=== PATIENT | male | born 1970 | race African-American/Black ===

== ENCOUNTER 2020-09-16 16:39 | Inpatient (IN) | payer BC ==
[2020-09-16] VITALS (7 sets, daily range): BP systolic 111–141; BP diastolic 62–83
[~2020-09-16] VITALS: Ht 180.3 cm; Wt 178.2 kg
--- NOTE | ~2020-09-16 | O ---
[facility] [place] [address] OPERATIVE REPORT Name: KARLOS HOUSE Room #: 237-P ADM IN M.R.#: [id number] Admission: 09/16/20 Attend Phys: Edgar Buckley MD Discharge: Date of : 66 Report #: [id number] THIS REPORT FOR: cc: FAM - Family physician unknown FAM - Family physician unknown Kishor Coy MD ~ DATE OF SERVICE: 10/04/2020 PREOPERATIVE DIAGNOSIS: Right pleural effusion. POSTOPERATIVE DIAGNOSIS: Right pleural effusion. OPERATION: Right chest tube placement. SURGEON: Kishor Coy MD ANESTHESIA: Local. INDICATIONS: The patient is a 49-year-old, on the ventilator with COVID pneumonia. The patient has a right pleural effusion. Thoracentesis was done of 1250 mL of fluid, but there is residual lateral fluid present and Dr. Cavazos has asked us to place a chest tube for what appears to be Staph empyema. FINDINGS AND TECHNIQUE: After the patient was positioned and prepped and draped, 1% lidocaine was used, and incision was made in the anterolateral right chest. This was deepened until the chest was entered. Digital exploration was attempted, but the patient was quite thick. Chest tube was placed through the aperture and secured in position. Approximately 500 mL of serous fluid was obtained initially. Chest x-ray was obtained. The patient appeared to tolerate the procedure well despite his underlying problem. By: [id number] Kishor Coy MD /esperanza
--- NOTE | ~2020-09-16 | HC ---
[facility] [place] [address] CONSULTATION Name: KARLOS HOUSE Room #: 237-P ADM IN M.R.#: [id number] Admission: 09/16/20 Attend Phys: Edgar Buckley MD Discharge: Date of : 66 Report #: [id number] THIS REPORT FOR: cc: FAM - Family physician unknown FAM - Family physician unknown Kishor Coy MD ~ DATE OF SERVICE: 10/04/2020 We were asked by Dr. Cavazos to see the patient. HISTORY OF PRESENT ILLNESS: The patient is a 49-year-old admitted 09/16/2020 with pulmonary dysfunction related to COVID and respiratory failure. The patient required intubation and ventilation on 09/19/2020. Since that time, the patient has been treated for COVID-19 pneumonia with SARS and respiratory failure. It appears that yesterday a thoracentesis was done for new pleural effusion. 1250 mL of fluid was obtained. This was positive for Staph aureus. The patient also has had positive blood cultures recently for staph. There was residual pleural fluid and Dr. Cavazos has requested a chest tube to drain this. PAST MEDICAL HISTORY: Significant for asthma, obesity, hypertension and gastroesophageal reflux. It should be mentioned that the historical data is gleaned from the chart as the patient is intubated. MEDICATIONS: At home included Protonix, albuterol, metoclopramide, Bevespi Aerosphere inhaler, amlodipine, cefdinir, and prednisone. ALLERGIES: None reported. SOCIAL HISTORY: Tobacco, alcohol and recreational drug use, recorded as unknown. REVIEW OF SYSTEMS: I have no reason to disagree with the review of systems as documented in the chart. PHYSICAL EXAMINATION: GENERAL: The patient is currently on the ventilator. VITAL SIGNS: Temperature 38.1, heart rate 77, blood pressure 156/86, O2 sat varies from 87-91 on 100%. HEENT: No scleral icterus, no arcus. NECK: No mass, no bruit. CHEST: Decreased breath sounds, right side. [facility] [address] [place] [address] CONSULTATION Name: KARLOS HOUSE Sola Room #: 237-[facility] IN .R.#: [id number] Admission: 09/16/20 Attend Phys: Edgar Buckley MD Discharge: Date of : 66 Report #: [id number] HEART: Rhythm regular, heart tones are distant. ABDOMEN: Soft with centripetal obesity. EXTREMITIES: Trace edema. No clubbing, cyanosis. IMAGING DATA: Chest x-ray shows right pleural effusion. Details of chest tube placement will be dictated separately. ASSESSMENT: Pleural fluid positive for staph. Chest tube will be placed in the hopes that this is serous phase of the empyema. If intervened early enough, should not require open intervention. We will follow along with you for progress, recovering from the COVID pneumonia and respiratory failure and pulmonary dysfunction. Thank you for the consult. By: [id number] Kishor Coy MD /esperanza
[2020-09-16] MEDS ORDERED: PROTONIX40 M2 PO (16:54)
[2020-09-16] MEDS ORDERED: ALBUTEROL2.5 MG/3 M INH (16:55)
[2020-09-16] MEDS ORDERED: METOCLOPRAMIDE10 MG PO (16:55)
[2020-09-16] MEDS ORDERED: AMLODIPINE BESY10 MG PO (16:56)
[2020-09-16] MEDS ORDERED: BREZTRI AEROS10.7 GM INH (16:56)
[2020-09-16] MEDS ORDERED: PREDNISONE 5 MG5 M1 PO (16:57)
[2020-09-16] MEDS ORDERED: CEFDINIR300 MG PO (16:57)
[2020-09-16 17:03] LABS: ABSOLUTE NEUTROPHILS 10.4 thou/uL (1.4-8.2); BASOPHILS 0.3 % (0.0-2.0); HEMATOCRIT 45.1 % (42.0-52.0); HEMOGLOBIN 14.3 gm/dL (14.0-18.0); LYMPHOCYTES 5.7 % (24.0-44.0); MCH 22.4 pg (26.0-34.0); MCHC 31.8 g/dL (28.0-37.0); MCV 70.5 fL (80.0-100.0); MONOCYTES 5.7 % (1.0-8.0); PLATELET COUNT 329 thou/uL (150-400); POLYS 88.3 % (36.0-66.0); RBC 6.39 mil/uL (4.50-6.00); RDW 16.5 % (10.5-14.5); WBC 11.8 thou/uL (4.0-11.0)
[2020-09-16 17:14] LABS: ANION GAP 8 mmol/L (7-16); BUN 22 mg/dL (7-18); CALCIUM 8.3 mg/dL (8.5-10.1); CHLORIDE 100 mmol/L (98-107); CO2 28 mmol/L (21-32); CREATININE 1.6 mg/dL (0.7-1.3); GLUCOSE 148 mg/dL (74-106); POTASSIUM 4.3 mmol/L (3.5-5.1); SODIUM 136 mmol/L (136-145)
[2020-09-16 17:35] LABS: ALBUMIN 2.6 g/dL (3.4-5.0); DIRECT BILIRUBIN 0.1 mg/dL (<0.1-0.2); MAGNESIUM 2.6 mg/dL (1.8-2.4); PHOSPHORUS 3.4 mg/dL (2.5-4.9); SGOT 58 U/L (15-37); SGPT 62 U/L (30-65); TOTAL BILIRUBIN 0.5 mg/dL (0.2-1.0); TOTAL PROTEIN 7.4 g/dL (6.4-8.2); TROPONIN-I <0.06 ng/mL (<0.06)
[2020-09-16 17:58] LABS: HYPOCHROMASIA 3+
[2020-09-16 17:59] LABS: ANISOCYTOSIS 1+; MICROCYTES 3+
[2020-09-16 18:40] LABS: HCO3 22.4 mmol/L (22.0-26.0); PO2 71.2 mmHg (80.0-100.0); pH 7.437 (7.360-7.450)
--- NOTE | 2020-09-16 19:00 | NUR ---
PT [phone]
[2020-09-16 19:34] LABS: FERRITIN 272 ng/mL (26-388)
[2020-09-16 20:21] LABS: URINE BILIRUBIN NEGATIVE (Negative); URINE BLOOD TRACE (Negative); URINE CLARITY CLEAR; URINE COLOR YELLOW; URINE GLUCOSE-RANDOM* NEGATIVE (Negative); URINE KETONES NEGATIVE (Negative); URINE LEUKOCYTES-REFLEX NEGATIVE (Negative); URINE NITRITE-REFLEX NEGATIVE (Negative); URINE PROTEIN (DIPSTICK) TRACE (Negative)
[2020-09-16] MEDS ORDERED: TESSALON PERLE100 M1 PO (21:57)
[2020-09-16] MEDS ORDERED: SYMBICORT160 MCG/4. INH (21:59)
[2020-09-16] MEDS ORDERED: XHANCE16 ML INH (22:00)
--- NOTE | 2020-09-16 22:50 | NUR ---
PT ADMITTED TO UNIT AT 2139, PLACED ON TELE, ARRIVED ON BIPAP SETTINGS 16/8, RR 16, AND 100% FIO2; PT ABLE TO MOVE HIMSELF OVER TO BED VERY SLOWLY. SATTING ABOUT 90% W/ RR MID-TO HIGH 30'S. ADMISSION AND ASSESSMENT COMPLETED. ON IVF, FIRST DOSE REMDSIVIR INFUSING. PT A&Ox4, COOPERATIVE W/CARES. 2229-SPOKE WITH DR. HAND REGARDING NEW ADMIT. ORDERED ONE TIME DOSE OF LASIX, AM LABS, ELECTROLYTE PROTOCOL, AM CXR, AND START ON IVERMECTIN. DR. HAND ASKED TO BE CALLED BACK IF PT COULD NOT MAINTAIN SATS, OR HAD A SUSTAINED RR UPPER 30'S OR 40'S, OR SEEMED TO BE EXHAUSTING HIS RESP DRIVE. 2254-SPOKE WITH DR. GERONIMO REGARDING NEW CONSULT AND CURRENT ORDERS, ADDED CONVALESCENT PLASMA ORDERS.
[2020-09-17] VITALS (85 sets, daily range): BP systolic 86–168; BP diastolic 36–92
[2020-09-17 01:59] LABS: HEMATOCRIT 43.1 % (42.0-52.0); HEMOGLOBIN 13.7 gm/dL (14.0-18.0); MCH 22.3 pg (26.0-34.0); MCHC 31.8 g/dL (28.0-37.0); MCV 70.3 fL (80.0-100.0); RBC 6.12 mil/uL (4.50-6.00); RDW 16.7 % (10.5-14.5); WBC 10.5 thou/uL (4.0-11.0)
[2020-09-17 02:01] LABS: CALCIUM 7.9 mg/dL (8.5-10.1); CREATININE 1.5 mg/dL (0.7-1.3); POTASSIUM 4.4 mmol/L (3.5-5.1)
--- NOTE | 2020-09-17 21:40 | NUR ---
1957-PT REPORTED MILD ANXIETY, SPOKE W/JOCKEY VALET BRISEIDA AND OBTAINED ONE TIME ORDER FOR 4MG MORPHINE FOR AIR HUNGER/ANXIETY, GIVEN AT 2018. THIS DID CAUSE A SLIGHT DROP IN O2 SATS TO 88%, BUT BP AND HR ARE STABLE AND RR IS AROUND 27. 2139-SPOKE W/ PT'S HARRIETT AND GAVE UPDATE. NO CONCERNS NOTED, SHE SAYS SHE WILL TRY TO TALK TO HIM IN THE MORNING.
[2020-09-18] VITALS (45 sets, daily range): BP systolic 111–156; BP diastolic 54–97
[2020-09-18 01:05] LABS: GLYCOHEMOGLOBIN (HGB A1C) 7.8 % (4.8-5.6)
[2020-09-18 10:29] LABS: CREATININE 1.3 mg/dL (0.7-1.3); DIRECT BILIRUBIN 0.1 mg/dL (<0.1-0.2); POTASSIUM 4.7 mmol/L (3.5-5.1); TOTAL BILIRUBIN 0.3 mg/dL (0.2-1.0)
[2020-09-18 10:30] LABS: ALBUMIN 2.1 g/dL (3.4-5.0); PHOSPHORUS 3.5 mg/dL (2.6-4.7); TOTAL PROTEIN 6.3 g/dL (6.4-8.2)
[2020-09-18 10:57] LABS: HEMATOCRIT 42.1 % (42.0-52.0); MCH 22.5 pg (26.0-34.0); MCV 72.7 fL (80.0-100.0); PLATELET COUNT 347 thou/uL (150-400); RBC 5.79 mil/uL (4.50-6.00); RDW 17.1 % (10.5-14.5); WBC 12.9 thou/uL (4.0-11.0)
[2020-09-18 11:32] LABS: ABSOLUTE NEUTROPHILS 10.8 thou/uL (1.4-8.2); ANISOCYTOSIS 1+; MICROCYTES 2+; PLATELET ESTIMATE NORMAL
--- NOTE | 2020-09-18 13:33 | HC ---
[facility] [place] [address] CONSULTATION Name: KARLOS HOUSE Room #: 237-P ADM IN M.R.#: [id number] Admission: 09/16/20 Attend Phys: Edgar Buckley MD Discharge: Date of : 66 Report #: [id number] THIS REPORT FOR: cc: FAM - Family physician unknown FAM - Family physician unknown Mikey Marcial MD ~ DATE OF SERVICE: 09/17/2020 INFECTIOUS DISEASE CONSULTATION REASON FOR CONSULTATION: I was asked to evaluate concerning COVID-19 pneumonia. HISTORY OF PRESENT ILLNESS: The patient is a 49-year-old underlying history of asthma, hypertension, obesity, who presents with a 3-day history of cough, congestion and progressive dyspnea. He was tested positive 3 days prior to his admission. Given oral antibiotic and low dose prednisone without improvement. He presented in respiratory failure, now on BiPAP. He has had intermittent cough productive of light-colored sputum without hemoptysis or chest pain. No cardiovascular history other than hypertension. He does have a history of gastroesophageal reflux, which has been stable. He has had no travel. His family members have otherwise been healthy by his report. He has had no headaches, loss of taste or smell, nausea, vomiting or diarrhea. No rashes or arthritis. A 14-point review of system was negative other than what has been described above. ALLERGIES: None. MEDICATIONS: As noted on his MAR, having been started on corticosteroids, remdesivir and ivermectin. He is on azithromycin and ceftriaxone as well. PAST MEDICAL HISTORY: Asthma, gastroesophageal reflux, hypertension. FAMILY HISTORY: Negative for diabetes or pulmonary disease. SOCIAL HISTORY: Nonsmoker, no significant alcohol intake. PHYSICAL EXAMINATION: VITAL SIGNS: He is afebrile and hemodynamically stable. GENERAL: He is alert and cooperative, on BiPAP. He was obese. SKIN: Without rash or decubitus. No palpable adenopathy. HEENT: Eyes without scleral icterus. NECK: Supple. LUNGS: Coarse breath sounds posteriorly. [address] [address] CONSULTATION Name: KARLOS HOUSE Room #: 237-P [facility] IN ..#: [id number] Admission: 09/16/20 Attend Phys: Edgar Buckley MD Discharge: Date of : 66 Report #: [id number] HEART: Regular, without murmur, gallop or rub. ABDOMEN: Soft and nontender with no hepatosplenomegaly or mass. GENITORECTAL: Not performed. BACK: Nontender to percussion. EXTREMITIES: Without clubbing, cyanosis or edema. NEUROLOGIC: Cranial nerves intact. Strength in the upper and lower extremities along with sensation to touch symmetric and within normal limits. Mood without anxiety or depression. Mental status was normal. LABORATORY STUDIES: Reviewed. MICROBIOLOGY: Reviewed. Chest x-ray reviewed. IMPRESSION: 1. A 49-year-old with COVID-19 pneumonia and systemic inflammatory response syndrome and respiratory failure. 2. Asthma. 3. Obesity. 4. Hypertension. 5. Gastroesophageal reflux. RECOMMENDATIONS: We will continue full ICU support for COVID-19 infection including isolation procedures, combination antiviral therapy along with empiric antibiotics. He will be on corticosteroids. We will check serial laboratory studies and chest x-ray. He has received convalescent plasma. I have discussed with nursing staff regarding overall plan of care. <ELECTRONICALLY SIGNED> By: Mikey Marcial MD 09/18/20 1333 [id number] Mikey Marcial MD /nt
--- NOTE | 2020-09-18 14:11 | NUR ---
CONSULTED TO PLACE A CENTRAL LINE FOR TPN. ORDER AND CONSENT NOTED. THE PROCEDURE WELL BENIFITS AND RISKS DISCUSSED WITH THE PATIENT AND HE VERBALIZED UNDERSTANDING. THE RIGHT IJ WAS WIDLEY PATENT. A #6F TRIPLE LUMEN CENTRAL LINE WAS PLACED PER POLICY AFTER A BEDSIDE TIMEOUT WAS COMPLETED. THE 25CM LINE WAS ADVANCED TO 7CM EXTERNAL. A STAT CHEST XRAY WAS ORDERED FOR CONFIRMATION
--- NOTE | 2020-09-18 14:45 | NUR ---
on right side with shallow breathing with rr-38 when resting, then when awake rr-48. encouraged and provided support to assist pt in taking intermittent take deep breaths at short intervals and coughs when able to tolerate. with breathing improved to 38 when awake, pt able to position on his back. he continued to take deep breaths and cough, he was tired in general from the covid and tired from coughing. denies needing to be intubated at this time. allowed pt to rest. pt agreeable to prone. with rn assist, pt able to obtain prone positioning. well tolerated. bipap remains on. pt stated after positioning, "this feels so much better" referring to his posterior lungs. [employer] in his line of sight and pt dozing with resp rate eventually down to 28.
[2020-09-19] VITALS (46 sets, daily range): BP systolic 105–157; BP diastolic 61–99
[2020-09-19 04:26] LABS: HEMATOCRIT 40.9 % (42.0-52.0); HEMOGLOBIN 12.9 gm/dL (14.0-18.0); MCH 22.5 pg (26.0-34.0); MCHC 31.6 g/dL (28.0-37.0); MCV 71.3 fL (80.0-100.0); RBC 5.73 mil/uL (4.50-6.00); RDW 16.7 % (10.5-14.5); WBC 18.1 thou/uL (4.0-11.0)
[2020-09-19 04:44] LABS: CHOLESTEROL 205 mg/dL (<200); HDL CHOLESTEROL 34 mg/dL (>40); LDL CHOLESTEROL 138 mg/dL (<100); TRIGLYCERIDE 165 mg/dL (<150); VLDL 33 mg/dL (<40)
[2020-09-19 04:46] LABS: CALCIUM 8.1 mg/dL (8.5-10.1); CREATININE 1.3 mg/dL (0.7-1.3); DIRECT BILIRUBIN 0.1 mg/dL (<0.1-0.2); PHOSPHORUS 3.1 mg/dL (2.5-4.9); POTASSIUM 4.6 mmol/L (3.5-5.1); TOTAL BILIRUBIN 0.4 mg/dL (0.2-1.0); TOTAL PROTEIN 5.9 g/dL (6.4-8.2)
[2020-09-19 04:50] LABS: SERUM ASSESSMENT Clear
--- NOTE | 2020-09-19 07:22 | EKG ---
[address] [address] ELECTROCARDIOGRAM REPORT Name: KARLOS HOUSE Room #: 237-P ADM IN M.R.#: [id number] Admission: 09/16/20 Attend Phys: Edgar Buckley MD Discharge: Date of : 66 Report #: [id number] [facility] ED Test Date: 2020-09-16 Test Time: 18:19:16 Pat Name: KARLOS HOUSE Department: Room: [facility] Gender: M Audio Visual Facilities Engineer: : 1970 Requested By: Jaspreet Yan Order Number: [id number] MD: Lincoln Christian Measurements Intervals [place] Rate: 115 P: 60 [place]: 129 QRS: 3 QRSD: 76 T: 3 QT: 305 QTc: 422 Interpretive Statements Sinus tachycardia Cannot rule out inferior infarct, age indeterminate No previous ECG available for comparison Electronically Signed On 09-19-2020 7:22:43 FAMILY LIVING EDUCATOR by Lincoln Christian [email or web address] <ELECTRONICALLY SIGNED> By: Lincoln Christian MD, [facility] 09/19/20 0722 1819 1819 Lincoln Christian MD, FACC /EPI
--- NOTE | 2020-09-19 10:08 | NUR ---
49 year old male presenting to the ED via EMS with complaints of increasing SOB that began the day prior to ED presentation and became worse. Pt reports he recently tested positive for COVID-19 3 days ago and states he feels as if he cannot catch his breath. EMS reports pt.'s O2 saturations have remained in the 70's-80's on 15L Non-Rebreather Mask. Patient has been admitted for COVID 19 pneumonia with SARS and respiratory failure, Asthma, Obesity, HRN and Gastroesophageal reflux. Patient has been admitted to full ICU support with COVID-19 isolation and combination antiviral therapy. Pending cultures and empiric antibiotic therapy along with anticoagulation, Acute respiratory failure and sepsis. Remains on Bipap with FI 02 at 75. The patients spouse is Kavya [phone] who states that the patient does have BCBS with [employer] and did send a copy of this card to CM which in turn the notified admitting and registration. Introduced and explained the role of CM and learned that the patient has not used rehab, SNF, Home Health or DME services in the past. Explained as treatment progresses and per physician order therapies will be in to access discharge needs. Also explained that CM will follow for discharge needs.
--- NOTE | 2020-09-19 12:00 | NUR ---
pt agreed with being intubated after speaking with Dr. Swanson. pt face timed his and rn called to speak with his to update her on pt status. precedex infusing, pt bagged with 100% o2 per rt. etomidate iv and rocuronium 10mg iv given. propofol infusing. Dr. Swanson placed a 8.0 ett, 26 at teeth. OG placed at 76 cm, positive air bolus present.
--- NOTE | 2020-09-19 12:31 | NUR ---
portable chest xray completed.
[2020-09-19 12:50] LABS: BE(vivo) -4.9 mmol/L (-2 to +3); HCO3 21.7 mmol/L (22.0-26.0); PCO2 45.9 mmHg (35.0-45.0); PO2 133.1 mmHg (80.0-100.0); pH 7.293 (7.360-7.450); sO2 98.4 % (92.0-98.0)
--- NOTE | 2020-09-19 14:18 | NUR ---
unable to visit with gilmer rt conserve on ppe rt covid + and use of bipap. will cont following as needed for dc needs.
--- NOTE | 2020-09-19 18:45 | NUR ---
rn notified his that he was intubated and updated on his status with having sedation and tolerating vent. provided support and all questions answered to satisfaction. sedation decreased related SB-45. then pt's breathing becomes labored, has spontaneous movement of all extremities in attempt to remove ett and aggressively repositioning self in bed despite kirill wrist restraints. bucking vent, suctioning secretions per ett, sedation increased.
--- NOTE | 2020-09-19 19:30 | NUR ---
call placed to Dr. Swanson. updated on pt status with sao2 89-91% with fio2 previously increased. now sao2 low again. SB-45 related to sedation. received orders for sedation, tube feeding/water boluses and maint iv fluids dc'd. [facility] bed ordered, proning to start when [facility] bed available.
[2020-09-20] VITALS (39 sets, daily range): BP systolic 93–121; BP diastolic 52–69
[2020-09-20 04:26] LABS: BE(vivo) -5.3 mmol/L (-2 to +3); HCO3 20.2 mmol/L (22.0-26.0); PCO2 39.5 mmHg (35.0-45.0); PO2 64.2 mmHg (80.0-100.0); sO2 91.1 % (92.0-98.0)
[2020-09-20 04:27] LABS: pH 7.327 (7.360-7.450)
[2020-09-20 05:42] LABS: HEMATOCRIT 45.4 % (42.0-52.0); HEMOGLOBIN 14.3 gm/dL (14.0-18.0); MCH 22.8 pg (26.0-34.0); MCHC 31.5 g/dL (28.0-37.0); MCV 72.2 fL (80.0-100.0); RBC 6.29 mil/uL (4.50-6.00); RDW 16.9 % (10.5-14.5); WBC 23.1 thou/uL (4.0-11.0)
[2020-09-20 06:09] LABS: PLATELET COUNT 234 thou/uL (150-400)
[2020-09-20 06:16] LABS: CALCIUM 8.3 mg/dL (8.5-10.1); CREATININE 1.2 mg/dL (0.7-1.3); DIRECT BILIRUBIN 0.2 mg/dL (<0.1-0.2); PHOSPHORUS 3.5 mg/dL (2.5-4.9); POTASSIUM 4.9 mmol/L (3.5-5.1); TOTAL BILIRUBIN 0.4 mg/dL (0.2-1.0); TOTAL PROTEIN 6.1 g/dL (6.4-8.2)
[2020-09-20 13:10] LABS: ABSOLUTE NEUTROPHILS 22.4 thou/uL (1.4-8.2); ANISOCYTOSIS 1+
[2020-09-20 13:12] LABS: MICROCYTES 1+
--- NOTE | 2020-09-20 15:36 | NUR ---
[facility] error which is not allowing for documentation of insulin administration. 10 units of insulin given at 1310. ticket out to IT to resolve this issue in the emar.
--- NOTE | 2020-09-20 15:43 | NUR ---
SPOKE WITH DOCTOR GOTTLIEB ABOUT PRONING PATIENT. WILL ATTEMPT TO PRONE WHEN BARRIATIC BED ARRIVES.
--- NOTE | 2020-09-20 18:01 | NUR ---
ASSUMED CARE AT 1600. [facility] NOT FUNCTIONING CORRECTLY SPECIFICALLY THE INSULIN LISPRO CHARTING FUNCTION. FOR THE 1730 DOSE OF INSULIN, 20 UNITS WERE GIVEN FOR THE PATIENT'S BLOOD SUGAR OF 317 AT 1755. PATIENT NOT PROGRESSING TOWARDS THE PLAN OF CARE EVIDENCED BY CONTINUED HIGH OXYGEN DEMANDS.
--- NOTE | 2020-09-20 21:19 | NUR ---
This RN spoke to Kavya, at 2100 for about 10 minutes updating on patient status. All questions answered, and updated on care plan.
[2020-09-21] VITALS (24 sets, daily range): BP systolic 111–152; BP diastolic 63–86
--- NOTE | 2020-09-21 00:37 | NUR ---
This RN proned patient at 2230. Tolerated very well. O2 sats in upper 90's. Will continue to monitor.
[2020-09-21 05:32] LABS: ALBUMIN 2.4 g/dL (3.4-5.0); CALCIUM 8.1 mg/dL (8.5-10.1); CREATININE 1.7 mg/dL (0.7-1.3); DIRECT BILIRUBIN 0.3 mg/dL (<0.1-0.2); PHOSPHORUS 4.6 mg/dL (2.5-4.9); POTASSIUM 4.7 mmol/L (3.5-5.1); TOTAL BILIRUBIN 0.5 mg/dL (0.2-1.0); TOTAL PROTEIN 6.5 g/dL (6.4-8.2)
--- NOTE | 2020-09-21 09:41 | NUR ---
ASSUMED CARE AT 0700. PATIENT'S , HARRIETT, CALLED AND SHE WAS SPOKEN TO FROM [phone] AND SHE WAS UPDATED AND EDUCATED ON THE PATIENT'S CONDITION AND PLAN OF CARE. HARRIETT REQUESTED A CALL FROM THE SPORTS BOOKMAKER.
--- NOTE | 2020-09-21 21:22 | NUR ---
This RN called Dr Swanson to discuss multiple liquid bowel movements. That started last night. Happens after tube feedings. Orders to place a fecal management system.
[2020-09-22] VITALS (23 sets, daily range): BP systolic 105–146; BP diastolic 64–88
--- NOTE | 2020-09-22 01:16 | NUR ---
Patient proned at 0100. Tolerating very well. Will continue to monitor.
[2020-09-22 05:26] LABS: MAGNESIUM 3.6 mg/dL (1.8-2.4); PHOSPHORUS 3.2 mg/dL (2.5-4.9)
[2020-09-22 05:39] LABS: ALBUMIN 2.2 g/dL (3.4-5.0); CALCIUM 7.8 mg/dL (8.5-10.1); CREATININE 1.5 mg/dL (0.7-1.3); DIRECT BILIRUBIN 0.2 mg/dL (<0.1-0.2); PHOSPHORUS 3.3 mg/dL (2.5-4.9); POTASSIUM 5.5 mmol/L (3.5-5.1); TOTAL BILIRUBIN 0.4 mg/dL (0.2-1.0); TOTAL PROTEIN 5.4 g/dL (6.4-8.2)
--- NOTE | 2020-09-22 10:23 | NUR ---
Assumed care at 0700, assessment and vital signs completed per ICU protocol. Pt's , Kavya, called RN for an update, security code provided. RN will continue to monitor.
[2020-09-23] VITALS (72 sets, daily range): BP systolic 119–169; BP diastolic 76–110
[2020-09-23 06:10] LABS: HEMATOCRIT 44.1 % (42.0-52.0); HEMOGLOBIN 13.8 gm/dL (14.0-18.0); MCH 22.5 pg (26.0-34.0); MCHC 31.2 g/dL (28.0-37.0); MCV 72.2 fL (80.0-100.0); PLATELET COUNT 164 thou/uL (150-400); RBC 6.11 mil/uL (4.50-6.00); RDW 17.4 % (10.5-14.5); WBC 20.5 thou/uL (4.0-11.0)
[2020-09-23 06:45] LABS: DIRECT BILIRUBIN 0.2 mg/dL (<0.1-0.2); PHOSPHORUS 2.5 mg/dL (2.5-4.9)
[2020-09-23 06:49] LABS: ALBUMIN 2.2 g/dL (3.4-5.0); CALCIUM 7.8 mg/dL (8.5-10.1); CREATININE 1.3 mg/dL (0.7-1.3); POTASSIUM 5.5 mmol/L (3.5-5.1); TOTAL BILIRUBIN 0.4 mg/dL (0.2-1.0); TOTAL PROTEIN 5.7 g/dL (6.4-8.2)
--- NOTE | 2020-09-23 07:23 | NUR ---
PT MAKING SLOW PROGRESS TOWARDS GOALS. ON VENTILATOR WITH FI02 55%. PT O2 SAT AT TIMES 87% TO 93%. O2 SAT DROPS WITH BIG CHANGES IN POSITION, HOLDING OF SEDATION AND SLIGHTLY WITH CHANGING OF HME. LUNGS AT TIMES COARSE AND AT OTHERS DIMINISHED.
--- NOTE | 2020-09-23 09:21 | NUR ---
Recommend change to continuous tube feed at goal of 55ml/hr (acceptable to infuse even while pt is proning per literature review), and increase water flush to 300ml every 6 hr mixed with 1 packet beneprotein.
--- NOTE | 2020-09-23 13:00 | NUR ---
ON-GOING ASSESSMENT: CM REVIEWED CHART. PT REMAINS SEDATED ON THE VENT, FIO2 55 PERCENT. PT RECEIVING TF. CONTINUING WITH IV REMDESIVIR WELL IV ANBX.
[2020-09-23 13:51] LABS: ANISOCYTOSIS 2+
[2020-09-23 13:52] LABS: HYPOCHROMASIA 1+; MICROCYTES 2+
[2020-09-23 14:59] LABS: BE(vivo) 2.6 mmol/L (-2 to +3); PO2 60.3 mmHg (80.0-100.0); pH 7.437 (7.360-7.450); sO2 91.9 % (92.0-98.0)
--- NOTE | 2020-09-23 20:22 | NUR ---
Assumed care at 0700, assessment and vital signs complete per ICU protocol. Dr. Swanson rounded this am, plan of care discussed. 13:00-Pt's called RN for an update, security code provided. RN gave update, will continue to monitor.
[2020-09-24] VITALS (32 sets, daily range): BP systolic 115–167; BP diastolic 66–93
--- NOTE | 2020-09-24 05:58 | NUR ---
ASSUMED CARE OF PATIENT AT 1900. REQUIRING EXTENSIVE SEDATION. PRONED AT 0100. TOLERATES WELL. DID NEED SLIGHTLY MORE FIO2. FMS, MENDOZA, OG AND ET IN PLACE. WORKING TOWARDS POC GOALS.
[2020-09-24 06:34] LABS: CALCIUM 8.2 mg/dL (8.5-10.1); CREATININE 1.2 mg/dL (0.7-1.3); DIRECT BILIRUBIN 0.1 mg/dL (<0.1-0.2); PHOSPHORUS 3.5 mg/dL (2.6-4.7); POTASSIUM 5.7 mmol/L (3.5-5.1); TOTAL BILIRUBIN 0.7 mg/dL (0.2-1.0); TOTAL PROTEIN 6.3 g/dL (6.4-8.2)
--- NOTE | 2020-09-24 09:28 | NUR ---
ASSUMED CARE AT 0700. PATIENT'S , HARRIETT, CALLED AND SHE WAS SPOKEN TO FROM [phone] AND SHE WAS UPDATED AND EDUCATED ON THE PATIENT'S CONDITION AND PLAN OF CARE.
[2020-09-25] VITALS (86 sets, daily range): BP systolic 109–149; BP diastolic 72–99
[2020-09-25 06:12] LABS: ABSOLUTE NEUTROPHILS 13.9 thou/uL (1.4-8.2); HEMATOCRIT 43.3 % (42.0-52.0); HEMOGLOBIN 13.2 gm/dL (14.0-18.0); LYMPHOCYTES 2.5 % (24.0-44.0); MCHC 30.5 g/dL (28.0-37.0); MCV 72.2 fL (80.0-100.0); PLATELET COUNT 126 thou/uL (150-400); POLYS 92.5 % (36.0-66.0); RDW 16.6 % (10.5-14.5); WBC 15.1 thou/uL (4.0-11.0)
[2020-09-25 06:24] LABS: ALBUMIN 1.9 g/dL (3.4-5.0); CREATININE 1.2 mg/dL (0.7-1.3); DIRECT BILIRUBIN 0.3 mg/dL (<0.1-0.2); PHOSPHORUS 3.5 mg/dL (2.6-4.7); POTASSIUM 5.4 mmol/L (3.5-5.1); TOTAL BILIRUBIN 0.7 mg/dL (0.2-1.0); TOTAL PROTEIN 6.1 g/dL (6.4-8.2)
--- NOTE | 2020-09-25 07:54 | NUR ---
THIS RN RETUNRED A PHONE CALL AND SPOKE WITH HARRIETT, THE PATIENT'S , JUST AFTER MIDNIGHT. UPDATED GIVEN, PLAN OF CARE FOR PATIENT THIS SHIFT TO PRONE AT 0100. SEDATION FOR COMFORT. HARRIETT WOULD LIKE TO SPEAK WITH AN MD FOR AN UPDATED AND INFORMATION UPDATE ON CHEST XRAY, PASSED TIS MESSAGE ON TO DAY SHIFT DARNELL LEONARD.
--- NOTE | 2020-09-25 07:59 | NUR ---
PATEINT SLOWWLY PROGRESSING TOWARS GOALS, TOLETED TF, WATER BOLUS AND PRONE POSITION.
--- NOTE | 2020-09-25 09:46 | NUR ---
ASSUMED CARE AT 0700. PATIENT'S , HARRIETT, CALLED AND WAS SPOKEN TO FROM [phone] AND SHE WAS UPDATED AND EDUCATED ON THE PATIENT'S CONDITION AND PLAN OF CARE.
[2020-09-26] VITALS (47 sets, daily range): BP systolic 118–154; BP diastolic 73–103
--- NOTE | 2020-09-26 01:36 | NUR ---
Pt proned at 0115. O2 sat dropped to 88% on FiO2 45%. FiO2 increased to 50%
[2020-09-26 07:44] LABS: BE(vivo) 1.3 mmol/L (-2 to +3); HCO3 28.5 mmol/L (22.0-26.0); PO2 67.2 mmHg (80.0-100.0); sO2 91.7 % (92.0-98.0)
[2020-09-26 07:45] LABS: pH 7.325 (7.360-7.450)
--- NOTE | 2020-09-26 11:21 | NUR ---
chart review. remains on vent, nutritional support. noted notified by bedside nurse. will cont following as needed for dc needs.
--- NOTE | 2020-09-26 18:37 | NUR ---
09/26/20 PATIENT FLIPPED FROM PRONE TO SUPINE AT 1300. FIO2 WEANED DOWN TO 45%. CONTINIOUS TUBE FEEDS STARTED PER DIETARY RECOMMENDATION. HARRIETT UPDATED VIA PHONE. PATIENT PROGRESSING TOWARDS GOALS OF CARE.
[2020-09-27] VITALS (42 sets, daily range): BP systolic 114–144; BP diastolic 73–92
[2020-09-27 04:30] LABS: BE(vivo) -1.9 mmol/L (-2 to +3); HCO3 24.1 mmol/L (22.0-26.0); PCO2 45.8 mmHg (35.0-45.0); PO2 89.4 mmHg (80.0-100.0); pH 7.339 (7.360-7.450); sO2 96.3 % (92.0-98.0)
--- NOTE | 2020-09-27 04:32 | NUR ---
Proning delayed this shift due to priority of care issues. Still planning to prone pt as soon as other staff available to assist. Pt has been getting percussion per RT. ABGs this a.m. improved from yesterday morning.
[2020-09-27 05:33] LABS: ABSOLUTE NEUTROPHILS 14.6 thou/uL (1.4-8.2); BASOPHILS 0.2 % (0.0-2.0); HEMATOCRIT 39.7 % (42.0-52.0); HEMOGLOBIN 12.2 gm/dL (14.0-18.0); LYMPHOCYTES 2.3 % (24.0-44.0); MCH 22.1 pg (26.0-34.0); MCHC 30.7 g/dL (28.0-37.0); MONOCYTES 7.1 % (1.0-8.0); PLATELET COUNT 126 thou/uL (150-400); POLYS 90.4 % (36.0-66.0); RBC 5.51 mil/uL (4.50-6.00); RDW 16.9 % (10.5-14.5); WBC 16.2 thou/uL (4.0-11.0)
[2020-09-27 05:43] LABS: ALBUMIN 1.8 g/dL (3.4-5.0); CALCIUM 7.8 mg/dL (8.5-10.1); CREATININE 1.2 mg/dL (0.7-1.3); POTASSIUM 5.2 mmol/L (3.5-5.1); TOTAL BILIRUBIN 0.8 mg/dL (0.2-1.0); TOTAL PROTEIN 5.5 g/dL (6.4-8.2)
--- NOTE | 2020-09-27 10:05 | NUR ---
Assumed care at 0700, assessment and vital signs complete per ICU protocol. Dr. Swanson rounded, plan of care discussed. RN will continue to monitor.
--- NOTE | 2020-09-27 21:39 | NUR ---
This RN talked to Kavya, spouse at 2130 this evening for about 10 minutes. Updated on plan of care and patients status.
[2020-09-28] VITALS (44 sets, daily range): BP systolic 100–170; BP diastolic 66–99
--- NOTE | 2020-09-28 01:32 | NUR ---
Patient supined at 0100. Tolerated well. Will continue to monitor.
[2020-09-28 06:06] LABS: BASOPHILS 0.1 % (0.0-2.0); HEMATOCRIT 38.7 % (42.0-52.0); HEMOGLOBIN 11.8 gm/dL (14.0-18.0); LYMPHOCYTES 2.3 % (24.0-44.0); MCH 22.1 pg (26.0-34.0); MCHC 30.4 g/dL (28.0-37.0); MCV 72.6 fL (80.0-100.0); MONOCYTES 5.4 % (1.0-8.0); PLATELET COUNT 128 thou/uL (150-400); POLYS 92.2 % (36.0-66.0); RBC 5.33 mil/uL (4.50-6.00); RDW 16.8 % (10.5-14.5); WBC 15.1 thou/uL (4.0-11.0)
[2020-09-28 06:26] LABS: D-DIMER 7.2 ug/mLFEU (0.19-0.50)
[2020-09-28 06:44] LABS: ALBUMIN 1.9 g/dL (3.4-5.0); CALCIUM 8.1 mg/dL (8.5-10.1); CREATININE 1.2 mg/dL (0.7-1.3); POTASSIUM 4.9 mmol/L (3.5-5.1); TOTAL BILIRUBIN 0.9 mg/dL (0.2-1.0); TOTAL PROTEIN 5.5 g/dL (6.4-8.2)
--- NOTE | 2020-09-28 06:46 | NUR ---
Patient progressing towards goals. VSS, good urine output. Patient follows commmands and shakes head appropriately without turning sedation off.
--- NOTE | 2020-09-28 16:40 | NUR ---
CM review of case and pt remains on vent with peep of 12. VSS and patient per nursing is following commands and nods appropriately without turning off of sedation. Per MD POC: Will "Continue treatment for SARS-CoV-2 pneumonia - Remdesiver, ivermectin, moderate dose steroids, moderate dose anticoagulation along with vitamin pack. Continue O2 to keep saturation >90%, Broad-spectrum antibiotics, ID following". Called to spouse Kavya at [phone] and gave update and stated nursing has been keeping her updated and she has been very pleased with care and updates. Informed her that CM will continue to follow for discharge needs as medical plan of care continues.
[2020-09-29] VITALS (36 sets, daily range): BP systolic 105–152; BP diastolic 71–108
--- NOTE | 2020-09-29 02:11 | NUR ---
Patient supinated at 0100 this morning. Tolerating well. Will continue to monitor.
[2020-09-29 04:50] LABS: ALBUMIN 1.9 g/dL (3.4-5.0); CALCIUM 7.8 mg/dL (8.5-10.1); CREATININE 1.1 mg/dL (0.7-1.3); PHOSPHORUS 2.9 mg/dL (2.5-4.9); POTASSIUM 4.6 mmol/L (3.5-5.1)
--- NOTE | 2020-09-29 09:20 | NUR ---
Assumed care at 0700, assessment and vital signs completed per ICU protocol. Dr. Swanson rounded this am, plan of care discussed. Pt's , Kavya, called RN for an update, security code provided. RN gave update, will continue to monitor.
[2020-09-29 09:23] LABS: BE(vivo) 3.4 mmol/L (-2 to +3); HCO3 28.9 mmol/L (22.0-26.0); PCO2 47.1 mmHg (35.0-45.0); PO2 96.8 mmHg (80.0-100.0); pH 7.405 (7.360-7.450); sO2 97.3 % (92.0-98.0)
[2020-09-30] VITALS (44 sets, daily range): BP systolic 97–143; BP diastolic 53–95
--- NOTE | 2020-09-30 02:11 | NUR ---
ASSUMED CARE AT 1900. PT NOTED TO HAVE BLOOD IN HIS STOOL/FMS WELL LEAKING A SMALL AMOUNT AROUND THE FLEXISEAL. FLUSHED THE SYSTEM, SEEMS TO BE DRAINING EASILY. APPROX 1999, PT'S CALLED AND GAVE HER A BRIEF UPDATE ON HIS CONDITION, NO CONCERNS NOTED. 0100-PT PLACED BACK IN SUPINE POSITION AFTER BEING PRONED.
[2020-09-30 03:56] LABS: ALBUMIN 1.9 g/dL (3.4-5.0); CALCIUM 7.7 mg/dL (8.5-10.1); CREATININE 1.1 mg/dL (0.7-1.3); PHOSPHORUS 3.4 mg/dL (2.6-4.7); POTASSIUM 4.2 mmol/L (3.5-5.1)
--- NOTE | 2020-09-30 10:19 | NUR ---
chart review. jose cont to require vent support and nutritional support. cm visited with about " his true status, been getting updates from nurse but need to know how his test are, and how lungs are looking"/ doris. cm passed on information to hospitalist. no anticipated dc over the weekend.
[2020-09-30 14:24] LABS: HEMATOCRIT 38.4 % (42.0-52.0); HEMOGLOBIN 11.8 gm/dL (14.0-18.0); MCH 22.1 pg (26.0-34.0); MCHC 30.8 g/dL (28.0-37.0); MCV 71.5 fL (80.0-100.0); RBC 5.36 mil/uL (4.50-6.00); RDW 16.5 % (10.5-14.5); WBC 20.5 thou/uL (4.0-11.0)
--- NOTE | 2020-09-30 19:15 | NUR ---
spoke with doris. patient proned at 1300. precedex gtt initated for sedation management. no stool in fecal managment system this shift.
[2020-10-01] VITALS (117 sets, daily range): BP systolic 63–120; BP diastolic 30–82
[2020-10-01 06:29] LABS: HEMATOCRIT 38.6 % (42.0-52.0); HEMOGLOBIN 11.8 gm/dL (14.0-18.0); MCH 21.9 pg (26.0-34.0); MCHC 30.5 g/dL (28.0-37.0); PLATELET COUNT 134 thou/uL (150-400); RBC 5.36 mil/uL (4.50-6.00); RDW 16.8 % (10.5-14.5); WBC 22.3 thou/uL (4.0-11.0)
[2020-10-01 06:46] LABS: ANION GAP 8 mmol/L (7-16); BUN 43 mg/dL (7-18); CALCIUM 8.1 mg/dL (8.5-10.1); CHLORIDE 99 mmol/L (98-107); CO2 31 mmol/L (21-32); CREATININE 1.3 mg/dL (0.7-1.3); GLUCOSE 119 mg/dL (74-106); SGOT 37 U/L (15-37); SGPT 161 U/L (30-65); SODIUM 138 mmol/L (136-145); TOTAL BILIRUBIN 0.5 mg/dL (0.2-1.0); TOTAL PROTEIN 5.5 g/dL (6.4-8.2)
[2020-10-01 06:59] LABS: D-DIMER 4.52 ug/mLFEU (0.19-0.50); PROTIME 11.4 Seconds (9.3-11.4)
[2020-10-01 07:28] LABS: PLATELET ESTIMATE NORMAL
--- NOTE | 2020-10-01 07:37 | NUR ---
ASSUMED CARE AT 1900. REMOVED FMS AT MIDNIGHT; NO IMPACTED STOOL NOTED, BUT THERE WAS MODERATE RUNNY, RUST COLORED BLOODY STOOL AFTER REMOVING FLEXISEAL. SIGNIFICANT LIP AND EYE EDEMA NOTED ONCE PT SUPINATED. CENTRAL LINE DRESSING SLID DOWN, CHANGED DRESSING, BUT SITE NOW LEAKING A FAIR AMOUNT. BP SOFT THIS AM, TITRATING DILAUDID SLIGHTLY.
--- NOTE | 2020-10-01 15:12 | NUR ---
VAT CONSULTED FOR PICC PLACEMENT. RIGHT UPPER CEPHALIC PICC TRIMMED 46, 0CM EXTERNAL. PT TOLERATED WELL. TIP LOCATION CONFIRMED SVC, BY 3CG. RELEASED FOR USE, PER HOSPITAL POLICY.
--- NOTE | 2020-10-01 23:35 | NUR ---
ASSUMED CARE AT 1900. 2099-SPOKE W/ HARRIETT FOR UPDATE. SHE EXPRESSED CONCERNS THAT A DOCTOR HADN'T CALLED HER SINCE PT WAS INTUBATED. SHE WAS ALSO CONCERNED BC PT WAS FIGHTING A RESP INFECTION FOR ABOUT A MONTH PRIOR TO HAVING COVID AND WAS ON ABX; THIS IS A RECURRENT PROBLEM FOR HIM AND STATES HE HAS HAD SPUTUM CULTURES DONE IN THE PAST; SHE WAS CURIOUS WHAT ABX COURSE HE HAD BEEN ON HERE. SHE ALSO WANTED A GENERAL UPDATE ABOUT GOALS AND EXPECTED LENGTH OF BEING INTUBATED. REASSURED HER THAT ALL OF THIS WOULD BE PASSED ON TO THE NEXT DAY NURSE AND PHYSICIAN. 2144-PT'S SISTER JAQUELIN CALLED, SHE WAS ABLE TO PROVIDE CODE. DISCUSSED THE IMPORTANCE OF COMMUNICATING WITH A PRIMARY PERSON, WHO IN THIS CASE IS HARRIETT. SINCE SHE HAD CODE, GAVE A BRIEF UPDATE ON PT CONDITION, AND ASKED THAT IN FUTURE ALL INFO SHOULD COME FROM HARRIETT. 2229-SPOKE W/DR. GOTTLIEB AND COMMUNICATED HARRIETT'S CONCERNS AND ASKED THAT HE CALL HER IN THE MORNING, HE SAID HE WOULD GIVE HER AN UPDATE.
[2020-10-02] VITALS (85 sets, daily range): BP systolic 85–126; BP diastolic 53–79
[2020-10-02 05:05] LABS: HEMATOCRIT 39.2 % (42.0-52.0); MCH 22.3 pg (26.0-34.0); MCHC 30.7 g/dL (28.0-37.0); MCV 72.7 fL (80.0-100.0); RBC 5.39 mil/uL (4.50-6.00); RDW 16.1 % (10.5-14.5); WBC 35.2 thou/uL (4.0-11.0)
[2020-10-02 05:18] LABS: INR 1.1
[2020-10-02 05:19] LABS: ALBUMIN 1.8 g/dL (3.4-5.0); CALCIUM 7.6 mg/dL (8.5-10.1); CREATININE 1.3 mg/dL (0.7-1.3); PHOSPHORUS 3.7 mg/dL (2.5-4.9); POTASSIUM 4.6 mmol/L (3.5-5.1)
[2020-10-02 17:30] LABS: URINE BILIRUBIN NEGATIVE (Negative); URINE BLOOD TRACE (Negative); URINE CLARITY CLEAR; URINE COLOR YELLOW; URINE GLUCOSE-RANDOM* NEGATIVE (Negative); URINE KETONES NEGATIVE (Negative); URINE LEUKOCYTES-REFLEX NEGATIVE (Negative); URINE NITRITE-REFLEX NEGATIVE (Negative); URINE PROTEIN (DIPSTICK) NEGATIVE (Negative)
--- NOTE | 2020-10-02 19:49 | NUR ---
Spoke extensively with the (Kavya) and gave an update about her 's condition. She is expressing frusration that she is not get enough communication with the Drs that are taking care of her . She is wanting to get frequent updates and calls from the hospitalist, broke man, and ID doctors. RN apologized for the lack of communication between the nursing staff and the physicians. SHe is also wanting to set a facetime session with her at noon tommorrow 10/03/19. Will communicate with day nurse to set up zoom time and communicate with physicians of family's request for more communication.
[2020-10-03] VITALS (116 sets, daily range): BP systolic 54–174; BP diastolic 24–88
[2020-10-03 03:38] LABS: BE(vivo) 2.6 mmol/L (-2 to +3); HCO3 29.6 mmol/L (22.0-26.0); PCO2 56.5 mmHg (35.0-45.0); pH 7.337 (7.360-7.450); sO2 95.7 % (92.0-98.0)
[2020-10-03 05:33] LABS: HEMATOCRIT 38.1 % (42.0-52.0); HEMOGLOBIN 11.8 gm/dL (14.0-18.0); MCH 22.6 pg (26.0-34.0); MCV 72.9 fL (80.0-100.0); PLATELET COUNT 135 thou/uL (150-400); RBC 5.22 mil/uL (4.50-6.00); RDW 16.5 % (10.5-14.5); WBC 29.1 thou/uL (4.0-11.0)
[2020-10-03 05:51] LABS: D-DIMER 4.87 ug/mLFEU (0.19-0.50); PROTIME 11.4 Seconds (9.3-11.4)
[2020-10-03 06:07] LABS: ALBUMIN 1.9 g/dL (3.4-5.0); PHOSPHORUS 3.2 mg/dL (2.6-4.7); POTASSIUM 4.9 mmol/L (3.5-5.1); TOTAL BILIRUBIN 0.5 mg/dL (0.2-1.0); TOTAL PROTEIN 5.6 g/dL (6.4-8.2)
--- NOTE | 2020-10-03 07:36 | NUR ---
0715 - PT LOOKED UNCOMFORTABLE, SAO2 AT 85. RN WENT IN TO READJUST THE PT, PT HR INCREASED TO 150s, SUSTAINING. O2 DESAT TO 70s. RN CALLED ACADEMIC ASSOCIATE, RECEIVED ORDER FOR CARDIZEM, AND RECEIVED CONSULT TO CARDIOLOGY, CARDIOLOGY CALLED
[2020-10-03 07:55] LABS: BE(vivo) -0.4 mmol/L (-2 to +3); HCO3 30.5 mmol/L (22.0-26.0); sO2 70.7 % (92.0-98.0)
[2020-10-03 07:56] LABS: PCO2 84.4 mmHg (35.0-45.0); PO2 47.4 mmHg (80.0-100.0); pH 7.176 (7.360-7.450)
--- NOTE | 2020-10-03 09:00 | NUR ---
chart review, noted he cont to require vent support, o2 destat , and nutritional support. noted bedside nurse has been in contact with doris # [phone]. will cont following as needed for dc needs.
[2020-10-03 11:52] LABS: BE(vivo) -2.2 mmol/L (-2 to +3); HCO3 33.6 mmol/L (22.0-26.0); sO2 59.6 % (92.0-98.0)
[2020-10-03 11:53] LABS: PCO2 146.1 mmHg (35.0-45.0); PO2 49.2 mmHg (80.0-100.0)
[2020-10-03 11:59] LABS: ABSOLUTE NEUTROPHILS 27.1 thou/uL (1.4-8.2); ANISOCYTOSIS 1+; MICROCYTES 2+; PLATELET ESTIMATE NORMAL
[2020-10-03 19:24] LABS: BE(vivo) 2.1 mmol/L (-2 to +3); HCO3 29.6 mmol/L (22.0-26.0); PCO2 58.9 mmHg (35.0-45.0); PO2 57.7 mmHg (80.0-100.0); sO2 87.1 % (92.0-98.0)
[2020-10-03 19:26] LABS: pH 7.319 (7.360-7.450)
--- NOTE | 2020-10-03 20:40 | NUR ---
SPOKE TO AND COMMUNICATED THAT NEW ABG RESULTS SHOWED IMPROVEMENT IN ACIDOSIS AND OXYGENATION. GAVE BRIEF UPDATE ON PT CURRENT CONDITION. ALL QUESTIONS ANSWERED
[2020-10-03 21:16] LABS: CALCIUM 7.9 mg/dL (8.5-10.1); CREATININE 1.5 mg/dL (0.7-1.3)
[2020-10-03 21:17] LABS: POTASSIUM 6.3 mmol/L (3.5-5.1)
[2020-10-04] VITALS (88 sets, daily range): BP systolic 94–181; BP diastolic 54–94
[2020-10-04 04:13] LABS: BE(vivo) 6.1 mmol/L (-2 to +3); HCO3 32.5 mmol/L (22.0-26.0); PCO2 55.2 mmHg (35.0-45.0); pH 7.388 (7.360-7.450); sO2 90.2 % (92.0-98.0)
[2020-10-04 05:04] LABS: HEMATOCRIT 37.4 % (42.0-52.0); HEMOGLOBIN 11.6 gm/dL (14.0-18.0); MCH 22.7 pg (26.0-34.0); MCHC 31.1 g/dL (28.0-37.0); MCV 73.1 fL (80.0-100.0); RBC 5.11 mil/uL (4.50-6.00); RDW 16.3 % (10.5-14.5); WBC 26.9 thou/uL (4.0-11.0)
[2020-10-04 05:07] LABS: CREATININE 1.6 mg/dL (0.7-1.3)
--- NOTE | 2020-10-04 06:23 | NUR ---
TOLERATING VENT WELL, GTTS TITRATED FOR BP AND APPROPRIATE SEDATION. SATS 90-93% ON FI02 100%. ADEQUATE URINE OUTPUT. NOT PROGRESSING TOWARD GOALS
--- NOTE | 2020-10-04 07:02 | EKG ---
[address] [address] ELECTROCARDIOGRAM REPORT Name: KARLOS HOUSE Room #: 237- ADM IN M.R.#: [id number] Admission: 09/16/20 Attend Phys: Edgar Buckley MD Discharge: Date of : 66 Report #: [id number] [facility] Test Date: 2020-10-03 Test Time: 08:36:01 Pat Name: KARLOS HOUSE Department: Room: 237 P Gender: M [employer]ip[employer] Supervisor: KENZIE : 1970 Requested By: Sammie Collazo Order Number: [id number] MD: Akash Sun Measurements Intervals [place] Rate: 126 P: [place]: QRS: 94 QRSD: 126 T: 2 QT: 292 QTc: 423 Interpretive Statements Atrial fibrillation RBBB and LPFB ST elevation anterior lead, possible early infarct Baseline wander in lead(s) I,III,aVR,aVL Compared to ECG 09/16/2020 18:19:16 Left posterior fascicular block now present Right bundle-branch block now present Sinus tachycardia no longer present Electronically Signed On 10-04-2020 7:02:29 DISTRICT ADMINISTRATIVE ASSISTANT by Akash Sun [email or web address] <ELECTRONICALLY SIGNED> By: Akash Sun MD, FAC 10/04/20 0702 5 0836 Akash Sun MD, FAC /EPI
[2020-10-04 12:23] LABS: CALCIUM 7.8 mg/dL (8.5-10.1); CREATININE 1.4 mg/dL (0.7-1.3); POTASSIUM 5.8 mmol/L (3.5-5.1)
[2020-10-04 12:36] LABS: BE(vivo) 6.1 mmol/L (-2 to +3); PCO2 58.7 mmHg (35.0-45.0); PO2 62.9 mmHg (80.0-100.0); pH 7.368 (7.360-7.450); sO2 90.9 % (92.0-98.0)
--- NOTE | 2020-10-04 15:56 | NUR ---
PT INTUBATED AND SEDATED, NO SEDATION VACATION DUE TO VERY HIGH VENT SETTINGS. UNABLE TO TITRATE VENT SETTINGS TODAY. CHEST TUBE WAS PLACED BY CTS AT BEDSIDE TODAY AT 1445, INITIALLY 500ML SERO-SANG DRAINAGE. CXR OBTAINED AND CTS VISUALIZED AND CONFIRMED TUBE PLACEMENT. PT WAS FEBRILE TODAY T-MAX 100.7, ADEQUATE UOP BY MENDOZA, NO BM (PRN'S GIVEN), TUBE FEED SWITCHED TO NEPHRO WITH NEW RECOMMENDATIONS FROM DIETARY, RESIDUALS WNL. PT CONTINUES TO HAVE HIGH BLOOD GLUCOSES, HOSPITALIST DID NOT COME TO VISIT PT TODAY. AMIODARONE GTT DC'D PER CARDIOLOGY. PT AND FAMILY HAVE BEEN UPDATED AND EDUCATED ON PT CONDITION AND POC. PT SLOWLY PROGRESSING TOWARDS POC.
--- NOTE | 2020-10-04 21:45 | NUR ---
SPOKE TO PT'S HARRIETT HOUSE AND GAVE HER AN UPDATE. NO SIGNIFICANT CHANGES SINCE SHE SPOKE TO THE DAY RN. WILL UPDATE HER IF STATUS CHANGES
[2020-10-05] VITALS (41 sets, daily range): BP systolic 123–165; BP diastolic 66–83
[2020-10-05 04:00] LABS: BE(vivo) 5.4 mmol/L (-2 to +3); HCO3 32.4 mmol/L (22.0-26.0); PCO2 60.4 mmHg (35.0-45.0); PO2 73.6 mmHg (80.0-100.0); pH 7.348 (7.360-7.450); sO2 93.7 % (92.0-98.0)
[2020-10-05 05:58] LABS: HEMATOCRIT 33.5 % (42.0-52.0); HEMOGLOBIN 10.3 gm/dL (14.0-18.0); MCH 22.8 pg (26.0-34.0); MCHC 30.8 g/dL (28.0-37.0); PLATELET COUNT 127 thou/uL (150-400); RBC 4.52 mil/uL (4.50-6.00); RDW 16.7 % (10.5-14.5); WBC 20.5 thou/uL (4.0-11.0)
[2020-10-05 06:43] LABS: ALBUMIN 1.8 g/dL (3.4-5.0); CALCIUM 7.5 mg/dL (8.5-10.1); CREATININE 1.5 mg/dL (0.7-1.3); POTASSIUM 5.9 mmol/L (3.5-5.1); TOTAL BILIRUBIN 0.3 mg/dL (0.2-1.0); TOTAL PROTEIN 5.3 g/dL (6.4-8.2)
[2020-10-05 07:30] LABS: ABSOLUTE NEUTROPHILS 18.9 thou/uL (1.4-8.2); ATYPICAL LYMPHS 1 %
[2020-10-05 07:34] LABS: ANISOCYTOSIS 1+; HYPOCHROMASIA SLIGHT; MICROCYTES SLIGHT; POIKILOCYTOSIS SLIGHT
--- NOTE | 2020-10-05 09:58 | NUR ---
Nutrition: REC increase Nepro to 50 mL/hr and resume beneprotein powder if water flushes resume.
--- NOTE | 2020-10-05 10:50 | NUR ---
ASSUMED CARE OF PT AT 0700 SPOKE TO PT'S AT 0930 UPDATED PER POC CONTACTED DR. ESPOSITO AT 1032 TO LET HIM KNOW THE PT'S POTASSIUM IS HIGH AND HE GAVE ME ORDERS FOR ON TIME DOSE OF LASIX'S.
[2020-10-05 19:02] LABS: APTT 24.6 Seconds (24.5-32.8)
[2020-10-06] VITALS (22 sets, daily range): BP systolic 113–139; BP diastolic 61–98
[2020-10-06 05:06] LABS: HEMATOCRIT 36.2 % (42.0-52.0); HEMOGLOBIN 11.3 gm/dL (14.0-18.0); MCH 22.9 pg (26.0-34.0); MCHC 31.3 g/dL (28.0-37.0); MCV 73.2 fL (80.0-100.0); RBC 4.95 mil/uL (4.50-6.00)
[2020-10-06 05:29] LABS: CALCIUM 7.7 mg/dL (8.5-10.1); CREATININE 1.1 mg/dL (0.7-1.3)
[2020-10-06 05:36] LABS: POTASSIUM 5.5 mmol/L (3.5-5.1)
--- NOTE | 2020-10-06 10:36 | NUR ---
PT'S , HARRIETT, CALLED FOR UPDATE WHICH WAS PROVIDED. FACETIME APPOINTMENT SET UP FOR AFTER NOON. REASSURANCES AND EMOTIONAL SUPPORT PROVIDED.
--- NOTE | 2020-10-06 10:56 | NUR ---
chart review, cont to required vent and nutritional. cm visited with his spouse doris, had 1 question about if he has received cards his mom has been mailing to him and visiting?. Education that on isolation covid no visitor, only if going to move comfort care. " ok will we want tx still so not doing comfort"/doris-. cm passed on information to bedside nurse to see if cards are there and reinforce visitor policy. no anticipated over the weekend, will cont following as needed for dc needs.
--- NOTE | 2020-10-06 12:07 | PATH ---
[facility] [address] [place] [address] PATHOLOGY RPT PROCEDURE Name: KARLOS HOUSE Room #: 237-P ADM IN M.R.#: [id number] Admission: 09/16/20 Date of : 66 Discharge: Report #: [id number] Path Case #: [id number] Note [facility] Accession Number: [id number] TESTS RESULT FLAG UNITS REF RANGE LAB Clinician Provided Cytology Information No. of containers..01 Other (Miscellaneous) Source: BAL RUL DIAGNOSIS: BAL RUL INCONCLUSIVE. SILVER METHENAMINE STAINED SMEARS ARE NEGATIVE FOR PNEUMOCYSTIS JIROVECI. NO FUNGAL ORGANISMS ARE PRESENT. COMMENT, FEW ATYPICAL CELLS ARE PRESENT. NOT DIAGNOSTIC. Signed out by: 02 Senthil Ye MD, Pathologist NPI- [id number] Performed by: 01 Ruth Ann Clinton, Test Operator ([facility]) Gross description: 01 5ML, CLOUDY PINK, 1 TP 1S 1P /LCS 10/05/2020 1902 Local FLAG LEGEND: L-Low Normal,H-High Normal,LL-Alert Low,HH-Alert High <-Panic Low,>-Panic High,A-Abnormal,AA-Critical Abnormal Performed at: [address] [place] [address] Senthil Ye MD, [address] [address] Jennifer Frank MD, Specimen Comment: Report sent to Performed at: [address], [place], [place] [id number] MD Senthil Ye MD Phone: [phone]
--- NOTE | 2020-10-06 12:23 | NUR ---
AT APPROX 1145 AM, PT'S , HARRIETT, CALLED VIA IPAD FOR FACETIME SESSION. IPAD PLACED AT BEDSIDE AND ENCOURAGED TO SPEAK FREELY TO MR. HOUSE. EMOTIONAL SUPPORT AND REASSURANCES PROVIDED.
--- NOTE | 2020-10-06 12:48 | NUR ---
PER HARRIETT'S REQUEST, SEARCH THROUGH PT'S BELONGINGS FOR GREETING CARDS CONDUCTED WITH NO SUCCESS. UPDATE PROVIDED TO PT'S . PT'S ASKING IF KARLOS SIGNED A DPOA FOR MEDICAL CARE. INFORMED HARRIETT THAT THERE WAS NO PAPERWORK IN THE CHART REGARDING MEDICAL DPOA, NOR WAS THERE ANY INDICATION IN THE COMPUTER DATA THAT THE PATIENT HAD SIGNED A MEDICAL DPOA PRIOR TO HIS INTUBATION.
--- NOTE | 2020-10-06 17:43 | NUR ---
PT OPENS EYES TO NOXIOUS STIMULI, STRONG COUGH AND GAG NOTED. PT REQUIRED AN INCREASED FIO2 TODAY. OTHERWISE, VITAL SIGNS WERE STABLE AND PT AFEBRILE. URINE OUTPUT EXCELLENT. TOLERATING TUBE FEEDINGS WELL. TOLERATES BIG TURNS WITH BED FUNCTION WITHOUT PROBLEMS. OVERALL, PT IS STRUGGLING TO MEET HEALTHCARE GOALS. PT'S , HARRIETT, SPENT A CONSIDERABLE AMOUNT OF TIME TODAY ON [employer] WITH KARLOS. HARRIETT WAS UPDATED ON PT CONDITION WITH REASSURANCES AND EMOTIONAL SUPPORT PROVIDED. HARRIETT DID VOICE CONCERN REGARDING GREETING CARDS THAT HAVE BEEN SENT BUT HAVE NOT BEEN RECEIVED BY THE PATIENT. CM INVESTIGATING.
--- NOTE | 2020-10-06 23:35 | NUR ---
SUBCUTANEOUS EMPHYSEMA NOTED ON RIGHT SIDE BY DR. GERONIMO DURING ROUNDS @ 2224. STAT CXR DONE. RESULTS CALLED TO DR. HAND @ 5199. NO NEW ORDERS AT THIS TIME.
[2020-10-07] VITALS (24 sets, daily range): BP systolic 102–138; BP diastolic 61–82
[2020-10-07 04:08] LABS: BE(vivo) 2.5 mmol/L (-2 to +3); HCO3 27.2 mmol/L (22.0-26.0); PCO2 42.3 mmHg (35.0-45.0); PO2 59.6 mmHg (80.0-100.0); pH 7.426 (7.360-7.450); sO2 91.4 % (92.0-98.0)
[2020-10-07 04:37] LABS: HEMATOCRIT 37.4 % (42.0-52.0); HEMOGLOBIN 11.5 gm/dL (14.0-18.0); MCH 22.6 pg (26.0-34.0); MCHC 30.7 g/dL (28.0-37.0); MCV 73.6 fL (80.0-100.0); RBC 5.07 mil/uL (4.50-6.00); RDW 17.1 % (10.5-14.5); WBC 16.3 thou/uL (4.0-11.0)
[2020-10-07 04:51] LABS: CALCIUM 7.7 mg/dL (8.5-10.1); CREATININE 0.9 mg/dL (0.7-1.3); POTASSIUM 5.3 mmol/L (3.5-5.1)
--- NOTE | 2020-10-07 06:23 | NUR ---
JOSEY BREATHING NOTED @ 0344 THIS MORNING FOLLOWING A BATH/LINNEN CHANGE. ABGs DONE @ 0400. RESULTS CALLED TO . NO NEW ORDERS GIVEN.
--- NOTE | 2020-10-07 11:02 | NUR ---
MERCHANDISE STOCKER FAMILY CALL AND FOUND CONCERNS; IS TRYING TO CHECK ON DPOA PAPERWORK, THEIR MORTGAGE COMPANY WILL NOT SPEAK TO HER. WE DISCUSSED OTHER CONCERNS. WE CONCLUDED IN PRAYER.
--- NOTE | 2020-10-07 13:53 | NUR ---
called to sp with casemgt. She reports when patient admitted to hospital he told phys, staff that was able to rec updates and consent. She would like copy of paperwork which shows that information. Discussed patient may have verbally told staff but with no DPOA paperwork on chart he may not have completed. stated our web site states [facility] offers advance directives/DPOA She wants to be assured this was offered to her . Report patients rec admission packets however patient may have been too critical to address at the time of admit. Discussed can address as patient stabalizes.
--- NOTE | 2020-10-07 18:36 | NUR ---
10/07/20 PATIENT UNCHANGED THROUGHOUT SHIFT. VITAL SIGNS STABLE AT THIS TIME. VERY LARGE AIR LEAK PRESENT IN CHEST TUBE. DR. HAND AWARE AND AT BEDSIDE TO ASSESS, NO NEW ORDERS AT THIS TIME. 280 CC OUT OF CHEST TUBE THROUGHOUT SHIFT. HARRIETT UPDATED OVER THE PHONE. WILL CONTINUE TO MONITOR.
[2020-10-08] VITALS (20 sets, daily range): BP systolic 88–132; BP diastolic 50–76
[2020-10-08 05:07] LABS: HEMATOCRIT 38.4 % (42.0-52.0); HEMOGLOBIN 11.7 gm/dL (14.0-18.0); MCH 22.7 pg (26.0-34.0); MCHC 30.6 g/dL (28.0-37.0); MCV 74.1 fL (80.0-100.0); RBC 5.18 mil/uL (4.50-6.00); RDW 17.5 % (10.5-14.5); WBC 14.9 thou/uL (4.0-11.0)
[2020-10-08 05:40] LABS: CALCIUM 7.7 mg/dL (8.5-10.1); CREATININE 0.8 mg/dL (0.7-1.3); POTASSIUM 5.6 mmol/L (3.5-5.1)
[2020-10-09] VITALS (25 sets, daily range): BP systolic 82–126; BP diastolic 33–87
[2020-10-09 05:54] LABS: HEMATOCRIT 40.7 % (42.0-52.0); HEMOGLOBIN 12.6 gm/dL (14.0-18.0); MCH 22.9 pg (26.0-34.0); MCHC 30.9 g/dL (28.0-37.0); RBC 5.5 mil/uL (4.50-6.00); RDW 18.9 % (10.5-14.5); WBC 9.9 thou/uL (4.0-11.0)
[2020-10-09 05:57] LABS: CALCIUM 7.8 mg/dL (8.5-10.1); CREATININE 0.9 mg/dL (0.7-1.3); POTASSIUM 5.1 mmol/L (3.5-5.1)
[2020-10-09 10:01] LABS: BE(vivo) -0.7 mmol/L (-2 to +3); HCO3 27.1 mmol/L (22.0-26.0); PCO2 58.7 mmHg (35.0-45.0); PO2 66.6 mmHg (80.0-100.0); pH 7.282 (7.360-7.450); sO2 90.4 % (92.0-98.0)
--- NOTE | 2020-10-09 10:30 | NUR ---
PT UPDATED ON PHONE. EMOTIONAL SUPPORT GIVEN. STATES SHE WANTS TO COME SEE HIM. APPROVED BY [employer] HELPER YESTERDAY. 15 MINUTES ONLY. REPORTED TO PT PT VERY VERY SICK AND HIS BREATHING PATTERN HAS CHANGED.
--- NOTE | 2020-10-09 11:30 | NUR ---
PT HERE. EMOTIONAL SUPPORT GIVEN. DR. ESPOSITO STATED THIS AM THAT HE WOULD CALL AND UPDATE HER.
--- NOTE | 2020-10-09 19:27 | NUR ---
END OF SHIFT NOTED. PT NOT PROGRESSING TOWARDS GOALS... RESP PATTERN BETTER THAN THIS AM BUT STILL AGONAL AT TIMES. SEDATED, DID NOT LIGHTEN UP DUE TO ACUITY. TF LOWERED DUE TO ACUITY. DR. HAND AWARE. MG CITRATE GIVEN TODAY. SO FAR NO BM. PT VISITED. DR. ESPOSITO CALLED TO PLEASE CALL TO UPDATE. STATED HE WOULD CALL HER.
--- NOTE | 2020-10-09 21:58 | NUR ---
At initial assessment at 1999, pt's OG tube was clogged and I was unable to flush it. OG removed and new 18 Kinyarwanda OG placed, 65 cm at lip, air auscultated over stomach and KUB done to confirm placement.
[2020-10-10] VITALS (23 sets, daily range): BP systolic 105–172; BP diastolic 58–86
[2020-10-10 05:14] LABS: HEMATOCRIT 37.6 % (42.0-52.0); HEMOGLOBIN 11.5 gm/dL (14.0-18.0); MCH 23.1 pg (26.0-34.0); MCHC 30.6 g/dL (28.0-37.0); MCV 75.4 fL (80.0-100.0); RBC 4.98 mil/uL (4.50-6.00); WBC 9.9 thou/uL (4.0-11.0)
[2020-10-10 06:02] LABS: ALBUMIN 1.3 g/dL (3.4-5.0); CALCIUM 7.8 mg/dL (8.5-10.1); CREATININE 0.9 mg/dL (0.7-1.3); PHOSPHORUS 4.4 mg/dL (2.5-4.9); POTASSIUM 5.5 mmol/L (3.5-5.1)
--- NOTE | 2020-10-10 11:22 | NUR ---
cm notified by bedside nurse that unite icu supervisor force adjustment, wants dpoa to be completed with pt doris. cm notified spiritual care to check into dpoa with doris. will cont following as needed for dc needs. gilmer remains icu care, and nutritional support, vent, and chest tubes.
--- NOTE | 2020-10-10 11:44 | NUR ---
ASSUMED CARE AT 0700. PATIENT'S WAS CALLED AT [phone] AND SHE WAS TOLD SHE COULD VISIT FOR 15 MINUTES. STATED SHE WOULD COME IN AT 1300. SHE WAS ALSO UPDATED AND EDUCATED ON THE PATIENT'S CONDITION AND PLAN OF CARE.
[2020-10-11] VITALS (59 sets, daily range): BP systolic 62–224; BP diastolic 29–139
[2020-10-11 05:10] LABS: HEMOGLOBIN 10.4 gm/dL (14.0-18.0); MCH 23.1 pg (26.0-34.0); MCHC 30.6 g/dL (28.0-37.0); MCV 75.6 fL (80.0-100.0); RBC 4.49 mil/uL (4.50-6.00); RDW 19.8 % (10.5-14.5); WBC 9.5 thou/uL (4.0-11.0)
[2020-10-11 05:18] LABS: CALCIUM 7.8 mg/dL (8.5-10.1); CREATININE 1.2 mg/dL (0.7-1.3); POTASSIUM 5.5 mmol/L (3.5-5.1)
--- NOTE | 2020-10-11 05:52 | NUR ---
ASSUMED CARE AT 1900. NOTED TO HAVE FROTHY, PURULENT OUTPUT INTO CHEST TUBE, WHICH CONTINUES TO BE AT -20 SUCTION W/AIR LEAK AND NOT TIDALING. CONTINUES TO HAVE SMALL AMOUNT SUBQ EMPHYSEMA AROUND LEFT NECK/CLAVICLE AREA. 2037-PT'S SISTER JAQUELIN CALLED FOR UPDATE, SHE PROVIDED CODE, UPDATE GIVEN; SHE ALSO ASKED IF THE PT'S MOTHER WOULD BE ABLE TO CALL/FACETIME PT TOMORROW; ASKED HER TO CALL ABOUT 0900 TO ARRANGE A GOOD TIME W/DAY RN. MIDNIGHT TEMP OF 100.5, GAVE A DOSE OF TYLENOL WELL ATIVAN FOR HR, WHICH HELPED BOTH COME DOWN INTO 90'S. NO OTHER CONCERNS, WILL CONTINUE TO MONITOR.
[2020-10-11 11:34] LABS: HEMATOCRIT 38.5 % (42.0-52.0); HEMOGLOBIN 11.4 gm/dL (14.0-18.0); MCH 22.8 pg (26.0-34.0); MCHC 29.5 g/dL (28.0-37.0); MCV 77.3 fL (80.0-100.0); RBC 4.99 mil/uL (4.50-6.00); RDW 19.9 % (10.5-14.5); WBC 15.9 thou/uL (4.0-11.0)
--- NOTE | 2020-10-11 11:34 | NUR ---
jonel with [facility], offering assistance with dcp if needed and she can be reached at [phone], if needed. gilmer cont to requirer vent support , passed on during icu rounds that he is not following commands. will cont following as needed for dc needs.
[2020-10-11 11:46] LABS: CALCIUM 8.1 mg/dL (8.5-10.1); CREATININE 1.4 mg/dL (0.7-1.3)
[2020-10-11 11:48] LABS: POTASSIUM 6.7 mmol/L (3.5-5.1)
[2020-10-11 11:49] LABS: BE(vivo) -8.9 mmol/L (-2 to +3); HCO3 28.8 mmol/L (22.0-26.0); sO2 52.2 % (92.0-98.0)
[2020-10-11 11:51] LABS: PCO2 179.8 mmHg (35.0-45.0); PO2 51.3 mmHg (80.0-100.0); pH 6.822 (7.360-7.450)
--- NOTE | 2020-10-11 12:00 | NUR ---
at 1104, pt having sr with pvc couplets with every sinus beat, abruptly bp-64/30. Dr. Cavazos present in icu and immediately notified. re updated on pt status including pupils unequal on pupil 2+, the other 3+ with both brisk, eyes buldging out further out of eye socket with left greater than right, bp plummeted and having above described ectopy. agonal breathing increased from Ruth Ann, RT's am assessment, no cough or gag present, lung sounds very coarse, rhonci noted in right lung burgess, sa02 down to 73%, r pct with large air leak with thick tenacious bubbly foam white drainage per ett, no tidaling, no secretions per ett, abdomen very large, rounded, distended, firm with tube feeding off since pt in trendelenberg. precedex off r/t bp, continuing fentanyl and versed gtts. per Dr. Cavazos's orders ns 1,000 cc bolus over 1 hr, levo, vaso and epi infusing. on fourth attempt by multiple therapists and md, abg obtained. portable chest xray completed- determined no pneumothorax. potassium resulted-6.7, sodium bicarb [address] Cavazos's order[address] Dr. Marcial present- Dr. Cavazos and rn updated him on pt status, orders generated.
--- NOTE | 2020-10-11 12:01 | NUR ---
Dr. Cavazos called Kavya Wilkinson, to update on pt's critical status.
--- NOTE | 2020-10-11 13:32 | NUR ---
at 1225, call placed to Dr. Solares to update on pt status including potassium- 6.7 with 2 amps of bicarb administered after abg's obtained. at 1325, D50 1 amp administered, then at 1332 regular insulin 10 units iv administered.
--- NOTE | 2020-10-11 14:00 | NUR ---
architectural technician present to perform abdominal ultrasound.
--- NOTE | 2020-10-11 14:10 | NUR ---
at 1405, pt hr deteriorating with intermittent ventricular ectopy. epi gtt increased to 10 mcg/min. in process of beginning to externally pace pt, it was determined that the bradycardia became pulseless, then asystole. moreno flores immediately called, see code sheet for details.
--- NOTE | 2020-10-11 14:23 | NUR ---
Dr. Alvarez from ER and Dr. Cavazos responded to code blue. after completion of code both in agreeement, they called the code, pt . Dr. Cavazos called Kavya Wilkinson, to update her. Rn spoke with - obtained 3 additional visitors to come to be present at the bedside. rn communicated with Cailin Cota RN garage door hanger on the 's visitor request. authorization received. Vianey Stark aware and will provide support then escort family to pt room. present at bedside, other designated family members present. clothing and eyeglasses given to Kavya Wilkinson. family undecided at this time for home. phone number given for her to update security. provided support to family in person and on the phone. answered all questions. see paperwork for details.
--- NOTE | 2020-10-11 15:15 | NUR ---
CODE BLUE: THIS TUBE LASER OPERATOR PROVIDED STAFF SUPPORT. I NOTIFIED THE SPOUSE UPON REQUEST OF UNIT MGR OF THE CODE IN PROCESS. WE HAD PRAYER. DR. HAND NOTIFIED THE FAMILY OF THE FINAL RESULT. THE RN SPOKE TO FAMILY AND MADE ARRANGEMENTS FOR 4 FAMILY MEMBERS TO VISIT. ETA 1600 HOURS. THIS TUBE LASER OPERATOR WILL MEET THEM AT THE E.D. ENTRANCE.
== END 2020-10-11 14:23 | DRG 870 ==
LOC: ER 16:39 → ICU 18:36 → EROBS 18:36 → ICU 21:27
PROVIDERS: Emergency Medicine; Hospitalist; Internal Medicine; Internal Medicine Nephrology; Internal Medicine Pulmonary Disease; Nurse Practitioner Family; Pediatrics; Specialist; ADMIT Hospitalist; ATTEND Hospitalist
DX: A41.9 Sepsis, unspecified organism (principal); U07.1 COVID-19; J12.82 Pneumonia due to coronavirus disease 2019; J96.01 Acute respiratory failure with hypoxia; J96.02 Acute respiratory failure with hypercapnia; G92 Toxic encephalopathy; N17.0 Acute kidney failure with tubular necrosis; E43 Unspecified severe protein-calorie malnutrition; R65.21 Severe sepsis with septic shock; J15.20 Pneumonia due to staphylococcus, unspecified; J91.8 Pleural effusion in other conditions classified elsewhere; E87.1 Hypo-osmolality and hyponatremia; J93.9 Pneumothorax, unspecified; T79.7XXA Traumatic subcutaneous emphysema, initial encounter; Z68.43 Body mass index [BMI] 50.0-59.9, adult; J45.909 Unspecified asthma, uncomplicated; I10 Essential (primary) hypertension; K21.9 Gastro-esophageal reflux disease without esophagitis; E66.01 Morbid (severe) obesity due to excess calories; R73.9 Hyperglycemia, unspecified; T38.0X5A Adverse effect of glucocorticoids and synthetic analogues, initial encounter; I48.91 Unspecified atrial fibrillation; E87.5 Hyperkalemia; Z79.899 Other long term (current) drug therapy
CPT/HCPCS: 10078; 27000; 85076